=== PATIENT | male | born 1975 | race Caucasian/White ===

== ENCOUNTER 2017-11-30 06:43 | Day surgery (SDC) | payer OTHER, SELFPAY ==
[2017-11-22 14:22] VITALS: BMI 35.5
[2017-11-30] VITALS (7 sets, daily range): BP systolic 124–142; BP diastolic 2–85; PULSE 75–88; RESP 14–17; TEMP 36.2–36.4; O2SAT 94–98; BMI 35.5
--- NOTE | 2017-11-30 07:09 | PM.PREOP ---
Pre-operative Note Interval Note Pre-op Check: History & Physical Reviewed by Physician H&P completed within 30 days and has changed as indicated here:: none
--- NOTE | 2017-11-30 08:00 | SUR.OPER ---
Supine on padded OR bed, head on pillow, arms secured on padded arm boards at <90 degrees abduction, legs uncrossed, safety belt at thigh, tape over blanket over lower legs.
[2017-11-30] MEDS: LACTATED RINGERS 1,000 ML 100 ML IV (08:05)
--- NOTE | 2017-11-30 08:07 | SUR.PREOP ---
Block start time 0745[] . Monitoring initiated and maintained throughout procedure. Oxygen and medications given per anesthesiologist instructions. Patient remained stable throughout procedure, no adverse reactions noted. Block end time [0801. Per Dr Romeo. Sedation per Dr Romeo. Monitored throughout procedure maintained stable vital signs, awake responding verbally throughout. Continous NSR without ectopy. ].
[2017-11-30] MEDS: CEFAZOLIN VIAL 3 GM in SODIUM CHLORIDE 0.9% 100 ML 200 ML IV (08:45)
[2017-11-30] MEDS: THROMBIN (BOVINE) 5,000 UNIT VIAL 5000 UNIT TOP (09:11)
[2017-11-30] MEDS: HYDROCODONE/ACET 5/325 TABLET 1 TAB PO (09:58)
--- NOTE | 2017-11-30 09:58 | PM.OP.1 ---
Operative Date/Time/Diagnoses - Date of procedure: 11/30/17 Time of procedure: 09:59 Pre-op diagnosis: Dislocation of tarsometatarsal joint right foot, subsequent encounter ICD 10- S93.324D Retained deep implant, orthopedic Post-op diagnosis: same Procedure & Clinicians Procedure: Staged removal hardware right foot-Removal deep implant right foot CPT 02338 Same procedure as scheduled: Yes Indications: Patient is a 41-year-old male who had a history of a right Lisfranc injury in June of 2017. Get a bridge plate fixation on 06/19/2017. He now presents for staged hardware removal of his joint spanning fixation. He has been weight-bearing as tolerated using an arch support insert. He has had some increased pain over the last few weeks with increased activities. He has recently stopped using tobacco. The patient was counseled regarding the rationale for removal of hardware and the risks of surgery. The risks include infection, bleeding, damage to nerves and blood vessels or tendons, and wound dehiscence, malunion, nonunion, persistence of pain, DVT, PE, inability to return to the desired level of function, hardware breakage or prominence or incomplete removal, generalized dissatisfaction with the surgical procedure, need for additional procedures, cardiopulmonary complications and . The patient expressed understanding of all the risks and elected to proceed. The patient understands that recovery is variable and may require up to 1 year. The patient also understands that it is critical to elevate the operative extremity for the 1st 2 weeks after surgery to control swelling and pain. Patient was counseled that no weight will be allowed on the surgical extremity for 2 weeks or until the patient is instructed that safe to initiate weight-bearing. Patient expressed full understanding of these issues and would like to proceed with surgery. Informed consent was obtained and signed in the office. The patient was additionally counseled on cessation of all nicotine products remote bone and wound healing. DVT prophylaxis with aspirin starting postoperative day 1 until mobilizing was discussed. Surgeon: Meredith Bustamante Data Migration Lead: Rafaela Coffey Anesthesia Type: General and Peripheral nerve block Operative Notes Findings: The incision between the 1st and 2nd tarsometatarsal joints was reopened. And the spanning plate exposed. The Arthrex midfoot plate and 4 screws were removed without difficulty. The Lisfranc joint was stressed under fluoroscopic examination without evidence of instability. Closure Type: primary Implants & Drains: None Estimated Blood Loss (mL): 15 Blood products transfused: none Tourniquet time (min): 39 Procedure in detail: Procedure in detail: In the preoperative holding area, the appropriate limb and sites were marked, consent was again reviewed with the patient and all questions answered. The patient was brought to the operating room, placed on the operating table and given anesthetic. Following successful levels of anesthesia, the patient was appropriately padded, position secured to the table. An SCD was placed on the contralateral leg. All bony prominences were well padded. A well-padded thigh tourniquet was placed. The surgical leg was then prepped and draped in the usual sterile fashion. A formal time-out procedure was completed confirming the patient, site and side of surgery and administration of appropriate preoperative antibiotics. All were in agreement. The Esmarch bandage was used for exsanguination and the tourniquet elevated to 250 mm of mercury and stayed there for 39 min. The previous dorsal incision between the 1st and 2nd metatarsals was reopened sharply. Careful dissection was taken down and the EHL was mobilized laterally to protect the neurovascular bundle. The medial aspect of the Arthrex midfoot plate and 2 screws was exposed. Next attention was turned to mobilize the neurovascular bundle medially. And the lateral aspect of the plate was exposed. Careful elevation was used under the neurovascular bundle to free up the plate. Screws were removed sequentially without difficulty. Then the plate was removed from the wound. Fluoroscopy was brought in to confirm complete removal of all hardware. In light of fluoroscopy was used to evaluate the joint under stress. There was no evidence of abnormal motion or instability. The wound was then irrigated with sterile saline. Gel-Foam and thrombin was used for hemostasis and the tourniquet was released. Hemostasis was confirmed and the wound was then closed in layers with 2 O Vicryl deep. 4 0 Monocryl subcutaneous. And for a nylon in the skin. A sterile dressing was placed with Xeroform, 4 x 4 gauze, Webril, and an Jd wrap. The patient will use his boot at home for additional protection. Patient was awoken from anesthesia and taken to the recovery room in good condition. There were no immediate complications from this procedure. All counts were correct. Complications: none Condition: stable Disposition: same day surgery Plan for aftercare: The patient will remain nonweightbearing for 2-3 weeks while the incision heals. He will take 325 mg daily aspirin while he is nonweightbearing. He will follow up as scheduled in 2 weeks for wound evaluation possible suture removal. That time we will initiate weight-bearing with a arch support.
== END 2017-11-30 10:20 | disposition home or self-care (01) ==
PROVIDERS: PCP Internal Medicine; Visit Provider Orthopaedic Surgery Foot and Ankle Surgery
PROC: (CPT 20680; principal; 2017-11-30 07:45)
DX: S93.324A Dislocation of tarsometatarsal joint of right foot, initial encounter (principal); G47.33 Obstructive sleep apnea (adult) (pediatric); G89.18 Other acute postprocedural pain
CPT/HCPCS: 20680; 64450; J0690; J1100; J2405; J2704